=== PATIENT | female | born 1955 | race Caucasian/White ===

== ENCOUNTER → 2016-10-14 | Outpatient (CLI) | payer OTHER ==
--- NOTE | 2016-10-14 09:21 | DIAGNOSTIC IMAGING REPORT ---
Limited abdominal ultrasound HISTORY: Mass FINDINGS: At the site of the patient's hysterectomy scar is a 2.5 x 2.0 cm echogenic multinodular complex. This potentially relates to postprocedural scar or lipomas. No collection is identified. IMPRESSION: At the site of the hysterectomy scar is a multinodular complex, all components of which are echogenic. This may relate to postprocedural scar versus lipomas The above report was generated using voice recognition software. It may contain grammatical, syntax or spelling errors. Electronically signed by: Ronny Guzman M.D. 10/14/2016 9:20 AM Dictated Date/Time: 10/14/2016 9:16 AM
--- NOTE | 2016-10-14 09:37 | DIAGNOSTIC IMAGING REPORT ---
KUB CLINICAL HISTORY: N20.1 Left ureteral [id number] COMPARISON STUDY: 10/23/2015 FINDINGS: The soft tissues, psoas shadows, renal outlines and intestinal gas pattern appear normal. There is no evidence for bowel obstruction. No abnormal abdominal calcifications are seen. IMPRESSION: Normal study. The above report was generated using voice recognition software. It may contain grammatical, syntax or spelling errors. Electronically signed by: Ronny Guzman M.D. 10/14/2016 9:35 AM Dictated Date/Time: 10/14/2016 9:35 AM
== END | disposition home or self-care (01) ==
LOC: C.ULTRBC 08:53
PROVIDERS: ATTEND Dermatology
DX: N20.1 Calculus of ureter (principal); D48.5 Neoplasm of uncertain behavior of skin